=== PATIENT | male | born 1995 | race Caucasian/White ===

== ENCOUNTER → 2017-06-18 | Outpatient (CLI) | payer MEDICAID | LOC: CIMAGING 10:39 | PROVIDERS: ATTEND Family Medicine | DX: M54.9 Dorsalgia, unspecified (principal); Z87.81 Personal history of (healed) traumatic fracture | CPT/HCPCS: 72114-PO; 72170-PO ==

== ENCOUNTER → 2018-12-11 | Outpatient (CLI) | payer MEDICAID | LOC: CIMAGING 12:12 ==